=== PATIENT | female | born 1935 | race Caucasian/White ===

== ENCOUNTER 2016-06-05 11:24 | Inpatient (IN) | payer OTHER, MEDICARE ==
--- NOTE | 2016-06-05 12:05 | PDOC ---
History of Present Illness - General History Source: Patient Exam Limitations: No Limitations - History of Present Illness Initial Comments: 06/05/16 12:27 The patient is a 80 year old female, with a significant past medical history of seizures, GERD, and diverticulitis(last episode 2 years ago), who presents to the emergency department complaining of abdominal pain for approximately 2 weeks. Patient reports her symptoms are similar to when shes had diverticulitis in the past. She describes her pain as diffuse with associated gas gurgles. She reports a subjective TMax of 101 F approximately 1.5 weeks ago. She reports a decrease in appetite. Patient reports calling her PCP, Dr. Rodarte, who placed her on a strictly liquid diet to see if the patient would improve. Patient states she was beginning to feel better, but suddenly began to feel abdominal pain again yesterday. She reports taking and using a heating pad with no relief. Patient reports waking up with a subjective fever and constant abdominal cramping this morning. She reports calling her PCP, who sent her to the ED for further evaluation. Patient states she had bloodwork done at Dr. Wetzel office 2 weeks ago, which were normal. Patient denies any associated nausea, vomiting, diarrhea, or constipation. Patient denies any dysuria, hematuria, frequency, or urgency. Patient denies any night sweats or chills. Patient denies any recent travel or sick contacts Allergies: lamotrigine, amoxicillin,bifidobacterium bifidum, ciprofloxacin, ciprofloxacin HCl, iodine, Lactobacillus acidophilus, Lactobacillus bulgaricus, metronidazole, oxcarbazepine, Streptococcus thermophilus, Sulfa (Sulfonamide Antibiotics), and contrast Past Surgical History: TRACEY [employer] Social History: Non-smoker. ETOH use. Denies drug use. PCP: Dr. Rodarte <Pamela Edge - Last Filed: 06/05/16 15:33> <Charlette Jane - Last Filed: 06/05/16 16:20> - General Chief Complaint: Pain Stated Complaint: abd pain, hx of Diverticulosis Time Seen by Provider: 06/05/16 11:42 Past History <Pamela Edge - Last Filed: 06/05/16 15:33> - Past Medical History Anemia: No Asthma: No Cancer: No Cardiac Disorders: No CVA: No COPD: No CHF: No Dementia: No Diabetes: No GI Disorders: Yes (REFLUX, DIVERTICULITIS) Disorders: No HTN: No Hypercholesterolemia: No Liver Disease: No Seizures: Yes (PARTIAL SEIZURES-DX 11/2012) Thyroid Disease: No - Surgical History Abdominal Surgery: No Appendectomy: No Cardiac Surgery: No Cholecystectomy: Yes (LAP CHOLEY-1999) Lung Surgery: No Neurologic Surgery: No Orthopedic Surgery: No - Psycho/Social/Smoking Cessation Hx Anxiety: No Suicidal Ideation: No Smoking Status: No Smoking History: Never smoked Have you smoked in the past 12 months: No Number of Cigarettes Smoked Daily: 0 Information on smoking cessation initiated: No Hx Alcohol Use: Yes (daily obinna, wine) Drug/Substance Use Hx: No Substance Use Type: None Hx Substance Use Treatment: No <Charlette Jane - Last Filed: 06/05/16 16:20> - Past Medical History Allergies/Adverse Reactions: Allergies Allergy/AdvReac Type Severity Reaction Status Date / Time lamotrigine [From Lamictal] Allergy Intermediate HIVES,ITCHI Verified 05/18/14 15:19 NG amoxicillin Allergy Verified 06/05/16 11:38 Bifidobacterium bifidum Allergy Verified 06/05/16 11:38 [From Bacid] ciprofloxacin [From Cipro] Allergy Verified 06/05/16 11:40 ciprofloxacin HCl Allergy Verified 06/05/16 11:40 [From Cipro] iodine Allergy anaphylaxis Verified 05/18/14 15:19 Lactobacillus acidophilus Allergy Verified 06/05/16 11:38 [From Bacid] Lactobacillus bulgaricus Allergy Verified 06/05/16 11:38 [From Bacid] metronidazole [From Flagyl] Allergy Verified 06/05/16 11:39 oxcarbazepine Allergy Verified 06/05/16 11:40 Streptococcus thermophilus Allergy Verified 06/05/16 11:38 [From Bacid] Sulfa (Sulfonamide Allergy Verified 06/05/16 11:40 Antibiotics) contrast Allergy anaphylaxis Uncoded 12/17/13 09:21 Home Medications: Ambulatory Orders Aspirin [ASA -] 81 mg PO DAILY 05/18/14 Atenolol [Tenormin -] 50 mg PO DAILY 06/05/16 Review of Systems - Review of Systems Able to Perform ROS?: Yes Comments:: 06/05/16 12:28 GENERAL/CONSTITUTIONAL: Yes: +fever. No chills. No weakness. HEAD, EYES, EARS, NOSE AND THROAT: No change in vision. No ear pain or discharge. No sore throat. CARDIOVASCULAR: No chest pain or shortness of breath. RESPIRATORY: No cough, wheezing, or hemoptysis. GASTROINTESTINAL: Yes: +Abdominal pain. No nausea, vomiting, diarrhea or constipation. GENITOURINARY: No dysuria, frequency, or change in urination. MUSCULOSKELETAL: No joint or muscle swelling or pain. No neck or back pain. SKIN: No rash NEUROLOGIC: No headache, vertigo, loss of consciousness, or change in strength/ sensation. ENDOCRINE: Yes: +decrease in appetite. No increased thirst. No abnormal weight change. HEMATOLOGIC/LYMPHATIC: No anemia, easy bleeding, or history of blood clots. ALLERGIC/IMMUNOLOGIC: No hives or skin allergy. <Pamela Edge - Last Filed: 06/05/16 15:33> *Physical Exam - Vital Signs Last Vital Signs Temp Pulse Resp BP Pulse Ox 98.4 F 68 18 156/116 98 06/05/16 11:35 06/05/16 11:35 06/05/16 11:35 06/05/16 11:35 06/05/16 11:35 - Physical Exam Comments: 06/05/16 12:28 GENERAL: Awake, alert, and fully oriented, in no acute distress HEAD: No signs of trauma EYES: PERRLA, EOMI, sclera anicteric, conjunctiva clear ENT: Auricles normal inspection, hearing grossly normal, nares patent, oropharynx clear without exudates. Moist mucosa NECK: Normal ROM, supple, no lymphadenopathy, JVD, or masses LUNGS: Breath sounds equal, clear to auscultation bilaterally. No wheezes, and no crackles HEART: Regular rate and rhythm, normal S1 and S2, no murmurs, rubs or gallops ABDOMEN: Bilateral lower quadrant tenderness, with guarding, but no rebound. Normoactive bowel sounds. No masses EXTREMITIES: Normal range of motion, no edema. No clubbing or cyanosis. No cords, erythema, or tenderness NEUROLOGICAL: Cranial nerves II through XII grossly intact. Normal speech, normal gait SKIN: Warm, Dry, normal turgor, no rashes or lesions noted. <Pamela Edge - Last Filed: 06/05/16 15:33> - Vital Signs Last Vital Signs Temp Pulse Resp BP Pulse Ox 98.4 F 68 18 156/116 98 06/05/16 11:35 06/05/16 11:35 06/05/16 11:35 06/05/16 11:35 06/05/16 11:35 <Charlette Jane - Last Filed: 06/05/16 16:20> ED Treatment Course - LABORATORY CBC & Chemistry Diagram: 06/05/16 12:19 06/05/16 12:19 - RADIOLOGY Radiograph Interpretation: 06/05/16 13:40 EXAM: CT Abdomen and Pelvis INTERPRETED BY: Dr. Frazier REVIEWED BY: Dr. Jane IMPRESSION: Findings consistent with a mild degree of proximal sigmoid diverticulitis. Clinical correlation and follow-up recommended. Please see above discussion. <Pamela Edge - Last Filed: 06/05/16 15:33> - LABORATORY CBC & Chemistry Diagram: 06/05/16 12:19 06/05/16 12:19 <Charlette Jane - Last Filed: 06/05/16 16:20> Medical Decision Making - Medical Decision Making 06/05/16 15:23 First call placed to Dr. Rodarte at 15:22. Awaiting call back. Case discussed with Dr. Rodarte at 15:33. <Pamela Edge - Last Filed: 06/05/16 15:33> - Medical Decision Making Pt with acute uncomplicated diverticulitis on CT scan. I obtained ID consult due to history of multiple medication allergies. Dr. Egan evaluated, recommended ertapenem and 24 hour hospital stay. D/w Dr. Rodarte, will admit. <Charlette Jane - Last Filed: 06/05/16 16:20> *DC/Admit/Observation/Transfer - Attestations Scribe Attestion: 06/05/16 12:28 Documentation prepared by Pamela Edge, acting as medical coder for Charlette Jane MD. <Pamela Edge - Last Filed: 06/05/16 15:33> - Discharge Dispostion Admit: Yes <Charlette Jane - Last Filed: 06/05/16 16:20> Diagnosis at time of Disposition: Acute diverticulitis - Discharge Dispostion Condition at time of disposition: Stable - Referrals Referrals: Sophia Rodarte MD [Primary Care Provider] -
[2016-06-05] MEDS ORDERED: SODIUM CHLORIDE 1,000 ML IV STA (12:06)
[2016-06-05 12:29] LABS: BASOPHIL 0.7 % (0-2.0); EOSINOPHIL 0.1 % (0-4.5); MCHC 33.5 g/dl (32.0-36.0); MEAN CELL VOLUME 101.6 fl (80-96); MEAN PLT VOLUME 7.2 fl (7.5-11.1); NEUTROPHILS 71.8 % (42.8-82.8); PLATELET COUNT 250 K/MM3 (134-434); RDW 13.3 % (11.6-15.6)
[2016-06-05 12:45] LABS: URINE APPEARANCE CLEAR; URINE BILIRUBIN NEGATIVE (NEGATIVE); URINE BLOOD 1+ (NEGATIVE); URINE COLOR LTYELLOW; URINE GLUCOSE (UA) NEGATIVE (NEGATIVE); URINE KETONE NEGATIVE (NEGATIVE); URINE LEUK ESTERASE NEGATIVE (NEGATIVE); URINE NITRITE NEGATIVE (NEGATIVE); URINE PROTEIN NEGATIVE (NEGATIVE); URINE UROBILINOGEN NEGATIVE E.U./dl (0.2-1.0)
[2016-06-05 12:46] LABS: URINE MUCUS RARE; URINE RBC 4 /hpf (0-3)
[2016-06-05 13:24] LABS: ALBUMIN 3.4 g/dl (3.4-5.0); ALK PHOS 74 U/L (45-117); ANION GAP 10 (8-16); BILIRUBIN,TOTAL 0.6 mg/dL (0.2-1.0); CALCIUM 8.9 mg/dL (8.5-10.1); CO2 27 mmol/L (21-32); CREATININE 0.8 mg/dL (0.55-1.02); GLUCOSE,RANDOM 95 mg/dL (74-106); SGPT/ALT 16 U/L (12-78); TOT PROT 6.6 g/dl (6.4-8.2)
[2016-06-05 13:25] LABS: SGOT/AST 26 U/L (15-37)
--- NOTE | 2016-06-05 14:59 | PN ---
Progress Note (short form) - Note Progress Note: ID Consult dictated Recurrent acute sigmoid diverticulitis Multiple antibiotic allergies Obtain cultures Empiric ertapenem Aware of PCN allergy
[2016-06-05] MEDS ORDERED: ACETAMINOPHEN 325 MG TABLET (FP) PO ONE (15:23)
[2016-06-05] MEDS ORDERED: ERTAPENEM SODIUM 1 GM VIAL ONE (15:24)
[2016-06-05] MEDS ORDERED: ACETAMINOPHEN 325 MG TABLET (FP) ONE (15:24)
[2016-06-05] MEDS: ERTAPENEM SODIUM 1 GM in SODIUM CHLORIDE 50 ML IVPB SCH (16:55)
[2016-06-05 18:12] VITALS: BMI 28.8
--- NOTE | 2016-06-05 18:38 | CONS ---
DATE OF CONSULTATION: DATE OF DICTATION: 06/05/2016 INFECTIOUS DISEASE CONSULTATION HISTORY OF PRESENT ILLNESS: The patient is a 80-year-old female with a history of multiple antibiotic allergies evaluated for recurrent acute sigmoid diverticulitis. The patient developed a several-day history of diffuse abdominal pain described as gas like associated with anorexia and low-grade fever. She had had similar episodes in the past. She had been hospitalized at [facility] in May 2014 with acute sigmoid diverticulitis. The patient medicated herself with and applied heating pad with some relief. The pain worsened, and she presented to emergency room where CAT scan of abdomen and pelvis shows proximal acute sigmoid diverticulitis. Patient has history of multiple antibiotic allergies. She denies any nausea or vomiting. No rectal bleeding. No diarrhea or constipation. PAST MEDICAL HISTORY: Positive for acute diverticulitis. She was hospitalized in May of 2014; prior to that, she had an episode 4 years prior to that. Past medical history also includes gastroesophageal reflux disease. PAST SURGICAL HISTORY: Status post laparoscopic cholecystectomy. ALLERGIES: SULFA (rash). AMOXICILLIN (rash). CIPROFLOXACIN and FLAGYL (facial rash). MEDICATION: Include aspirin and atenolol. SOCIAL HISTORY: She lives at home with family members. Nonsmoker. Daily alcohol use. SYSTEMS REVIEW: Neurologic: No loss of consciousness, or focal weakness. Positive history of seizure disorder. Cardiac: Negative chest pain or palpitations. Respiratory: Negative cough or sputum production. Gastrointestinal: As per HPI. Genitourinary: Negative for urinary tract infection. LABORATORY DATA: White count 10.0, hematocrit 43.5, platelet count 250, BUN 7, creatinine 0.8. Urinalysis negative. Culture is pending. On CAT scan of the abdomen and pelvis shows inflammation of the proximal sigmoid colon. No abscess was noted. PHYSICAL EXAMINATION: General: She is awake. She is in no acute distress. Vital signs: Temperature 96.4, blood pressure 156/116, pulse 68, respirations 18 per minute. HEENT: Sclerae anicteric. Oropharynx negative. Cardiovascular: Heart sounds S1, S2. Respiratory: Lungs clear. Abdomen: Hypoactive bowel sounds. There is tenderness present left lower quadrant to deep palpation. No mass, rebound, or rigidity. Extremities: Negative for edema. IMPRESSION: 1. Recurrent acute sigmoid diverticulitis. 2. Multiple antibiotic allergies. Obtain blood cultures. Empiric antibiotic coverage in this PENICILLIN allergic patient with ertapenem 1 g IV piggyback daily. GI evaluation. Analgesics. IV fluid hydration. Will follow. Thank you for the kind referral. RYLAND SEN M.D. [id number]
[2016-06-05] MEDS ORDERED: diphenhydrAMINE HCL 25 MG CAPSULE (FP) PO STA (19:37)
[2016-06-05] MEDS ORDERED: ACETAMINOPHEN 325 MG TABLET (FP) PO PRN (19:39)
--- NOTE | 2016-06-05 21:20 | HP ---
Admitting History and Physical - Admission Chief Complaint: abdominal pain and fever History of Present Illness: 80 yo female with PMH of Seizure Disorder HTN, and Diverticulitis, developed for approximately 2 weeks nonspecific abdominal pain. During the past 2 days the patient developed fever with a maximum of 100.5. She was referred by me to ER for further evaluation. 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 Cardiovascular: Yes: HTN Gastrointestinal: Yes: Diverticulitis, Diverticulosis ...: No Heme/Onc: Yes: B12 Deficiency - Smoking History Smoking history: Never smoked Have you smoked in the past 12 months: No Aproximately how many cigarettes per day: 0 - Alcohol/Substance Use Hx Alcohol Use: Yes (daily obinna, wine) Home Medications - Allergies Allergies/Adverse Reactions: Allergies Allergy/AdvReac Type Severity Reaction Status Date / Time lamotrigine [From Lamictal] Allergy Intermediate HIVES,ITCHI Verified 05/18/14 15:19 NG amoxicillin Allergy Verified 06/05/16 11:38 Bifidobacterium bifidum Allergy Verified 06/05/16 11:38 [From Bacid] ciprofloxacin [From Cipro] Allergy Verified 06/05/16 11:40 ciprofloxacin HCl Allergy Verified 06/05/16 11:40 [From Cipro] iodine Allergy anaphylaxis Verified 05/18/14 15:19 Lactobacillus acidophilus Allergy Verified 06/05/16 11:38 [From Bacid] Lactobacillus bulgaricus Allergy Verified 06/05/16 11:38 [From Bacid] metronidazole [From Flagyl] Allergy Verified 06/05/16 11:39 oxcarbazepine Allergy Verified 06/05/16 11:40 Streptococcus thermophilus Allergy Verified 06/05/16 11:38 [From Bacid] Sulfa (Sulfonamide Allergy Verified 06/05/16 11:40 Antibiotics) contrast Allergy anaphylaxis Uncoded 12/17/13 09:21 - Home Medications Home Medications: Ambulatory Orders Aspirin [ASA -] 81 mg PO DAILY 05/18/14 Atenolol [Tenormin -] 25 mg PO DAILY 06/05/16 Review of Systems - Review of Systems Constitutional: reports: Malaise Neck: reports: No Symptoms Cardiovascular: reports: No Symptoms Respiratory: reports: No Symptoms Gastrointestinal: reports: Abdominal Pain, Constipation Genitourinary: reports: No Symptoms Breasts: reports: No Symptoms Reported Musculoskeletal: reports: No Symptoms Integumentary: reports: Pruritis, Rash (on lower anterior abdominnal wall) Physical Examination Vital Signs: Vital Signs Temperature 99.1 F 06/05/16 18:00 Pulse Rate 64 06/05/16 18:00 Respiratory Rate 20 06/05/16 18:00 Blood Pressure 147/70 06/05/16 18:00 O2 Sat by Pulse Oximetry (%) 99 06/05/16 16:53 Constitutional: Yes: No Distress, Calm Eyes: Yes: Conjunctiva Clear, EOM Intact HENT: Yes: Atraumatic, Normocephalic Neck: Yes: Supple, Trachea Midline Cardiovascular: Yes: Regular Rate and Rhythm, S1, S2 Respiratory: Yes: Regular, CTA Bilaterally. No: SOB Gastrointestinal: Yes: Normal Bowel Sounds, Soft, Abdomen, Obese, Tenderness ( in the suprapubic area and left descending colon). No: Hepatomegaly ...Rectal Exam: Yes: Deferred Breast(s): Yes: WNL Musculoskeletal: Yes: WNL Extremities: No: Calf Tenderness, Erythema Edema: No Peripheral Pulses WNL: Yes Neurological: Yes: Alert, Oriented Psychiatric: Yes: Alert, Oriented Imaging - Results Cat Scan: Other (Ct scan of the abdomen showing mild sigmoid diverticulitis. without fluid collection or free air) Problem List - Problems (1) Acute diverticulitis Assessment/Plan: with multiple allergies to various antibiotics was started in ER on Invanz and received the first dose there monitor patient tylenol for pain liquid diet Iv fluids D51/2 NS at 42 cc/ hr Gastroeneterology follow up in am Code(s): K57.92 - DVTRCLI OF INTEST, PART UNSP, W/O PERF OR ABSCESS W/O BLEED (2) History of seizure Assessment/Plan: the patient is not taking any medications , due to her allergies to the drugs recommended until now Code(s): Z87.898 - PERSONAL HISTORY OF OTHER SPECIFIED CONDITIONS (3) HTN (hypertension) Assessment/Plan: continue Atenolol 25 mg po daily Code(s): I10 - ESSENTIAL (PRIMARY) HYPERTENSION
[2016-06-05] MEDS: D5-1/2NS+10 MEQ KCL - 1,000 ML IV SCH (21:33)
[2016-06-05] MEDS: ATENOLOL 25 MG TABLET (FP) PO SCH (21:33)
[2016-06-05] MEDS ORDERED: ATENOLOL 25 MG TABLET (FP) PO SCH (22:00)
[2016-06-05] MEDS ORDERED: PT OWN MED DRAWER 7, Y5N ONE ×2 (22:10→22:21)
[2016-06-06 07:59] LABS: BASOPHIL 0.4 % (0-2.0); EOSINOPHIL 0.3 % (0-4.5); MCH 35.1 pg (25.7-33.7); MCHC 34.1 g/dl (32.0-36.0); MEAN CELL VOLUME 102.9 fl (80-96); MEAN PLT VOLUME 7.6 fl (7.5-11.1); NEUTROPHILS 66.6 % (42.8-82.8); PLATELET COUNT 217 K/MM3 (134-434); RDW 13.1 % (11.6-15.6); WHITE BLOOD COUNT 9.6 K/mm3 (4.0-10.0)
[2016-06-06 08:18] LABS: ALBUMIN 3.2 g/dl (3.4-5.0); ANION GAP 9 (8-16); BILIRUBIN,TOTAL 0.8 mg/dL (0.2-1.0); CALCIUM 8.1 mg/dL (8.5-10.1); CO2 24 mmol/L (21-32); COCKROFT - GAULT 90.1935; CREATININE 0.6 mg/dL (0.55-1.02); GLUCOSE,RANDOM 96 mg/dL (74-106); SGOT/AST 11 U/L (15-37); SGPT/ALT 13 U/L (12-78)
[2016-06-06 08:19] LABS: ALK PHOS 73 U/L (45-117); TOT PROT 5.8 g/dl (6.4-8.2)
[2016-06-06] MEDS: ACETAMINOPHEN 325 MG TABLET (FP) PO PRN ×2 (09:28→14:27)
[2016-06-06] MEDS: diphenhydrAMINE HCL 25 MG CAPSULE (FP) PO PRN (09:29)
--- NOTE | 2016-06-06 10:23 | CON.GI ---
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 Cardio/Vascular: Yes: HTN Gastrointestinal: Yes: Diverticulitis, Diverticulosis ...: No - Alcohol/Substance Use Hx Alcohol Use: Yes (daily obinna, wine) - Smoking History Smoking history: Never smoked Have you smoked in the past 12 months: No Aproximately how many cigarettes per day: 0 Home Medications - Allergies Allergies/Adverse Reactions: Allergies Allergy/AdvReac Type Severity Reaction Status Date / Time lamotrigine [From Lamictal] Allergy Intermediate HIVES,ITCHI Verified 05/18/14 15:19 NG amoxicillin Allergy Verified 06/05/16 11:38 Bifidobacterium bifidum Allergy Verified 06/05/16 11:38 [From Bacid] ciprofloxacin [From Cipro] Allergy Verified 06/05/16 11:40 ciprofloxacin HCl Allergy Verified 06/05/16 11:40 [From Cipro] iodine Allergy anaphylaxis Verified 05/18/14 15:19 Lactobacillus acidophilus Allergy Verified 06/05/16 11:38 [From Bacid] Lactobacillus bulgaricus Allergy Verified 06/05/16 11:38 [From Bacid] metronidazole [From Flagyl] Allergy Verified 06/05/16 11:39 oxcarbazepine Allergy Verified 06/05/16 11:40 Streptococcus thermophilus Allergy Verified 06/05/16 11:38 [From Bacid] Sulfa (Sulfonamide Allergy Verified 06/05/16 11:40 Antibiotics) contrast Allergy anaphylaxis Uncoded 12/17/13 09:21 - Home Medications Home Medications: Ambulatory Orders Aspirin [ASA -] 81 mg PO DAILY 05/18/14 Atenolol [Tenormin -] 25 mg PO DAILY 06/05/16 Physical Exam-GI Vital Signs: Vital Signs Temperature 98.8 F 06/06/16 06:09 Pulse Rate 72 06/06/16 06:09 Respiratory Rate 20 06/06/16 06:09 Blood Pressure 144/78 06/06/16 06:09 O2 Sat by Pulse Oximetry (%) 96 06/05/16 22:00 Labs: CBC, BMP 06/06/16 06:15 06/06/16 06:15
--- NOTE | 2016-06-06 10:32 | CON.GI ---
Consult Consult Specialty:: GI Referred by:: Dr. Rodarte Reason for Consultation:: Diverticulitis - History of Present Illness Chief Complaint: I was having abdominal pain History of Present Illness: 80F admitted for evaluation of 2 weeks of abdominal bloating, diminished appetite and cramping. She also had a temp 100.8 at home about 2 weeks ago. She put herself on a liquid diet for a bit however the cramping turned to lower abdominal pain. She was sent to the [facility] ER. WBC was 10,[address] scan without contrast was performed revealing mild proximal sigmoid diverticulitis. She had an episode of diverticultitis in 2014 for which she was treated at [facility]. Dr. Deon Wells is her manager chinese. He performed 2-3 colonoscopies on Ms. Bowen, the last being about 8 years ago. She does describe polyps being found on the first colonoscopy. She is currently on ertapenem given her multiple antibiotic allergies. 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 - Past Surgical History Past Surgical History: Yes: Cholecystectomy (laparoscopic) Additional Surgical History: vaginal gland removal - Alcohol/Substance Use Hx Alcohol Use: Yes (daily obinna, wine) Number of Drinks Daily: 4 (nightly martini, wine with every meal) - Smoking History Smoking history: Never smoked Have you smoked in the past 12 months: No Aproximately how many cigarettes per day: 0 - Social History Usual Living Arrangement: Alone ADL: Independent 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 Place of : [facility] History of Recent Travel: No Home Medications - Allergies Allergies/Adverse Reactions: Allergies Allergy/AdvReac Type Severity Reaction Status Date / Time lamotrigine [From Lamictal] Allergy Intermediate HIVES,ITCHI Verified 05/18/14 15:19 NG amoxicillin Allergy Verified 06/05/16 11:38 Bifidobacterium bifidum Allergy Verified 06/05/16 11:38 [From Bacid] ciprofloxacin [From Cipro] Allergy Verified 06/05/16 11:40 ciprofloxacin HCl Allergy Verified 06/05/16 11:40 [From Cipro] iodine Allergy anaphylaxis Verified 05/18/14 15:19 Lactobacillus acidophilus Allergy Verified 06/05/16 11:38 [From Bacid] Lactobacillus bulgaricus Allergy Verified 06/05/16 11:38 [From Bacid] metronidazole [From Flagyl] Allergy Verified 06/05/16 11:39 oxcarbazepine Allergy Verified 06/05/16 11:40 Streptococcus thermophilus Allergy Verified 06/05/16 11:38 [From Bacid] Sulfa (Sulfonamide Allergy Verified 06/05/16 11:40 Antibiotics) contrast Allergy anaphylaxis Uncoded 12/17/13 09:21 - Home Medications Home Medications: Ambulatory Orders Aspirin [ASA -] 81 mg PO DAILY 05/18/14 Atenolol [Tenormin -] 25 mg PO DAILY 06/05/16 Family Disease History - Family Disease History Family Disease History: Other: Father ( 56 bladder ca), Mother ( 76 ALS) , Brother (1 brother: does not speak to him much), Daughter (1 daughter: healthy ) Other Family History: No family history of colorectal cancer or other GI malignancy Review of Systems - Review of Systems Cardiovascular: denies: Chest Pain Respiratory: denies: Cough Gastrointestinal: reports: Abdominal Pain, Bloating, Constipation. denies: Diarrhea, Melena, Rectal Bleeding, Vomiting Physical Exam-GI Vital Signs: Vital Signs Temperature 98.8 F 06/06/16 06:09 Pulse Rate 72 06/06/16 06:09 Respiratory Rate 20 06/06/16 06:09 Blood Pressure 144/78 06/06/16 06:09 O2 Sat by Pulse Oximetry (%) 96 06/05/16 22:00 Constitutional: Yes: Calm Eyes: No: Sclera Icterus Cardiovascular: Yes: Regular Rate and Rhythm. No: Murmur Respiratory: Yes: CTA Bilaterally Gastrointestinal Inspection: Yes: Scars (healed trochar scars). No: Distention ...Auscultate: Yes: Normoactive Bowel Sounds ...Palpate: Yes: Tenderness (TTP LLQ). No: Guarding, Tenderness, Rebound ...Percussion: No: Tympanitic ...Rectal Exam: Yes: Guaiac Negative (Light brown stool). No: Mass Edema: No Neurological: Yes: Alert, Oriented Labs: CBC, BMP 06/06/16 06:15 06/06/16 06:15 Imaging - Results Cat Scan: Report Reviewed, Image Reviewed Problem List - Problems (1) Acute diverticulitis Assessment/Plan: Acute recurrent uncomplicated diverticulitis: On IV Abx per ID given her multiple drug allergies Daily labs w/ CRP OK with clear liquids. If pain not improving, strict NPO except meds Advised that she should consider colonoscopy in 6-8 weeks when acute issues are resolved. She intends to follow-up with her manager chinese Dr. Deon Wells. Code(s): K57.92 - DVTRCLI OF INTEST, PART UNSP, W/O PERF OR ABSCESS W/O BLEED
[2016-06-06] MEDS: ERTAPENEM SODIUM 1 GM in SODIUM CHLORIDE 50 ML IVPB SCH (10:37)
--- NOTE | 2016-06-06 11:17 | PN ---
Progress Note, Physician History of Present Illness: C/O LLQ abdominal pain No N/V No BM Afebrile Tolerated ertapenem without adverse reaction - Current Medication List Current Medications: Active Medications Acetaminophen (Tylenol -) 325 mg PO Q4H PRN PRN Reason: FEVER OR PAIN Last Admin: 06/06/16 09:28 Dose: 325 mg Atenolol (Tenormin -) 25 mg PO HS OLEKSANDR Last Admin: 06/05/16 21:33 Dose: 25 mg Diphenhydramine HCl (Benadryl -) 25 mg PO Q6H PRN PRN Reason: FOR ITCHING Last Admin: 06/06/16 09:29 Dose: 25 mg Ertapenem 1 gm/ Sodium (Chloride) 50 mls @ 100 mls/hr IVPB DAILY OLEKSANDR PRN Reason: Protocol Last Admin: 06/06/16 10:37 Dose: 100 mls/hr Potassium Chloride/Dextrose/Sod Cl (D5-1/2ns+10 Meq Kcl -) 1,000 mls @ 42 mls/ hr IV ASDIR OLEKSANDR Last Admin: 06/05/16 21:33 Dose: 42 mls/hr - Objective Vital Signs: Vital Signs Temperature 98.8 F 06/06/16 06:09 Pulse Rate 72 06/06/16 06:09 Respiratory Rate 20 06/06/16 06:09 Blood Pressure 144/78 06/06/16 06:09 O2 Sat by Pulse Oximetry (%) 96 06/05/16 22:00 Constitutional: Yes: No Distress Eyes: Yes: Conjunctiva Clear Cardiovascular: Yes: Regular Rate and Rhythm, S1, S2 Respiratory: Yes: CTA Bilaterally Gastrointestinal: Yes: Normal Bowel Sounds, Soft, Tenderness, Other (+ LLQ tenderness to deep palpation no rebound/ rigidity) Edema: No Labs: CBC, BMP 06/06/16 06:15 06/06/16 06:15 Assessment/Plan Acute recurrent sigmoid diverticulitis Multiple antibiotic allergies Continue ertapenem Await cultures GI evaluation appreciated
[2016-06-06] MEDS ORDERED: clonazePAM 0.5 MG TABLET PO SCH (17:45)
--- NOTE | 2016-06-06 17:54 | PN ---
Progress Note, Physician Chief Complaint: CC: less abdominal pain , now having seizures for which she usually takes Klonopin prn. there is no fever, and the patient did not have a bowel movement - Current Medication List Current Medications: Active Medications Acetaminophen (Tylenol -) 325 mg PO Q4H PRN PRN Reason: FEVER OR PAIN Last Admin: 06/06/16 14:27 Dose: 325 mg Atenolol (Tenormin -) 25 mg PO HS OLEKSANDR Last Admin: 06/05/16 21:33 Dose: 25 mg Clonazepam (Klonopin -) 0.125 mg PO ONCE OLEKSANDR Stop: 06/07/16 17:44 Diphenhydramine HCl (Benadryl -) 25 mg PO Q6H PRN PRN Reason: FOR ITCHING Last Admin: 06/06/16 09:29 Dose: 25 mg Ertapenem 1 gm/ Sodium (Chloride) 50 mls @ 100 mls/hr IVPB DAILY OLEKSANDR PRN Reason: Protocol Last Admin: 06/06/16 10:37 Dose: 100 mls/hr Potassium Chloride/Dextrose/Sod Cl (D5-1/2ns+10 Meq Kcl -) 1,000 mls @ 42 mls/ hr IV ASDIR OLEKSANDR Last Admin: 06/05/16 21:33 Dose: 42 mls/hr - Objective Vital Signs: Vital Signs Temperature 98.2 F 06/06/16 15:11 Pulse Rate 67 06/06/16 15:11 Respiratory Rate 16 06/06/16 15:11 Blood Pressure 115/72 06/06/16 15:11 O2 Sat by Pulse Oximetry (%) 99 06/06/16 11:00 Constitutional: Yes: No Distress, Calm Eyes: Yes: Conjunctiva Clear, EOM Intact HENT: Yes: Atraumatic, Normocephalic Neck: Yes: Supple, Trachea Midline Cardiovascular: Yes: Regular Rate and Rhythm Respiratory: Yes: Regular, CTA Bilaterally Gastrointestinal: Yes: Normal Bowel Sounds, Soft, Abdomen, Obese, Other ( decreased tenderness in th esuprapubic area) ...Rectal Exam: Yes: Deferred Breast(s): Yes: WNL Musculoskeletal: Yes: WNL Extremities: Yes: WNL. No: Calf Tenderness Peripheral Pulses WNL: Yes Neurological: Yes: Alert, Oriented Labs: CBC, BMP 06/06/16 06:15 06/06/16 06:15 Problem List - Problems (1) Acute diverticulitis Assessment/Plan: with multiple allergies to various antibiotics continue Invanz, sine the patient is tolerating it monitor patient tylenol for pain liquid diet Iv fluids D51/2 NS at 42 cc/ hr Code(s): K57.92 - DVTRCLI OF INTEST, PART UNSP, W/O PERF OR ABSCESS W/O BLEED (2) History of seizure Assessment/Plan: the patient is not taking any medications , due to her allergies to the drugs recommended until now start Klonopin as needed Code(s): Z87.898 - PERSONAL HISTORY OF OTHER SPECIFIED CONDITIONS (3) HTN (hypertension) Assessment/Plan: continue Atenolol 25 mg po daily Code(s): I10 - ESSENTIAL (PRIMARY) HYPERTENSION
[2016-06-06] MEDS: D5-1/2NS+10 MEQ KCL - 1,000 ML IV SCH (20:25)
[2016-06-06] MEDS: ATENOLOL 25 MG TABLET (FP) PO SCH (22:00)
[2016-06-06] MEDS ORDERED: PT OWN MED DRAWER 7, Y5N ONE (22:37)
[2016-06-07] MEDS ORDERED: PT OWN MED DRAWER 7, Y5N ONE ×3 (00:56→21:25)
[2016-06-07 08:18] LABS: BASOPHIL 0.4 % (0-2.0); EOSINOPHIL 0.8 % (0-4.5); MCH 34.6 pg (25.7-33.7); MCHC 33.6 g/dl (32.0-36.0); MEAN CELL VOLUME 103.1 fl (80-96); MEAN PLT VOLUME 7.7 fl (7.5-11.1); NEUTROPHILS 64.9 % (42.8-82.8); PLATELET COUNT 209 K/MM3 (134-434); RDW 13.3 % (11.6-15.6); WHITE BLOOD COUNT 7.9 K/mm3 (4.0-10.0)
--- NOTE | 2016-06-07 08:20 | EKG ---
Test Reason : Blood Pressure : / mmHG Vent. Rate : 064 BPM Atrial Rate : 064 BPM P-R Int : 154 ms QRS Dur : 098 ms QT Int : 416 ms P-R-T Axes : 053 -54 030 degrees QTc Int : 429 ms NORMAL SINUS RHYTHM WITH SINUS ARRHYTHMIA POSSIBLE LEFT ATRIAL ENLARGEMENT INCOMPLETE RIGHT BUNDLE BRANCH BLOCK LEFT ANTERIOR FASCICULAR BLOCK NONSPECIFIC ST ABNORMALITY ABNORMAL ECG WHEN COMPARED WITH ECG OF 13-MAR-2016 10:39, T WAVE VARIATION Confirmed by FADI JONAS MD ([id number]) on 06/07/2016 8:20:22 AM Referred By: Confirmed By:FADI JONAS MD
[2016-06-07 08:45] LABS: ALK PHOS 73 U/L (45-117); ANION GAP 11 (8-16); BILIRUBIN,TOTAL 0.6 mg/dL (0.2-1.0); C-REACTIVE PROTEIN 4.6 MG/DL (0.00-0.3); CALCIUM 8.4 mg/dL (8.5-10.1); CO2 24 mmol/L (21-32); COCKROFT - GAULT 108.2305; CREATININE 0.5 mg/dL (0.55-1.02); GLUCOSE,RANDOM 88 mg/dL (74-106); SGOT/AST 13 U/L (15-37); SGPT/ALT 15 U/L (12-78); TOT PROT 5.8 g/dl (6.4-8.2)
[2016-06-07] MEDS: ACETAMINOPHEN 325 MG TABLET (FP) PO PRN (09:50)
[2016-06-07] MEDS: diphenhydrAMINE HCL 25 MG CAPSULE (FP) PO PRN ×2 (09:50→21:22)
[2016-06-07] MEDS: ERTAPENEM SODIUM 1 GM in SODIUM CHLORIDE 50 ML IVPB SCH (10:50)
--- NOTE | 2016-06-07 11:06 | PN ---
Progress Note, Physician History of Present Illness: C/O bilateral lower quadrant abdominal pain No c/o N/V No BM since before admission No fever/ chills Tolerating ertapenem Afebrile WBC WNL BC no growth - Current Medication List Current Medications: Active Medications Acetaminophen (Tylenol -) 325 mg PO Q4H PRN PRN Reason: FEVER OR PAIN Last Admin: 06/07/16 09:50 Dose: 325 mg Atenolol (Tenormin -) 25 mg PO HS OLEKSANDR Last Admin: 06/06/16 22:00 Dose: 25 mg Clonazepam (Klonopin -) 0.125 mg PO BID OLEKSANDR Diphenhydramine HCl (Benadryl -) 25 mg PO Q6H PRN PRN Reason: FOR ITCHING Last Admin: 06/07/16 09:50 Dose: 25 mg Ertapenem 1 gm/ Sodium (Chloride) 50 mls @ 100 mls/hr IVPB DAILY OLEKSANDR PRN Reason: Protocol Last Admin: 06/06/16 10:37 Dose: 100 mls/hr Potassium Chloride/Dextrose/Sod Cl (D5-1/2ns+10 Meq Kcl -) 1,000 mls @ 42 mls/ hr IV ASDIR OLEKSANDR Last Admin: 06/06/16 20:25 Dose: 42 mls/hr - Objective Vital Signs: Vital Signs Temperature 97.7 F 06/07/16 06:00 Pulse Rate 57 L 06/07/16 06:00 Respiratory Rate 20 06/07/16 06:00 Blood Pressure 131/65 06/07/16 06:00 O2 Sat by Pulse Oximetry (%) 99 06/06/16 22:00 Constitutional: Yes: No Distress Eyes: Yes: Conjunctiva Clear Cardiovascular: Yes: Regular Rate and Rhythm, S1, S2 Respiratory: Yes: CTA Bilaterally Gastrointestinal: Yes: Normal Bowel Sounds, Soft, Abdomen, Obese, Tenderness, Other (Bilteral lower quadrant tenderness to deep palpation) Labs: CBC, BMP 06/07/16 06:15 06/07/16 06:15 Assessment/Plan Acute recurrent sigmoid diverticulitis Multiple antibiotic allergies Continue ertapenem GI evaluation follow up
[2016-06-07] MEDS: clonazePAM 0.5 MG TABLET PO SCH ×2 (11:34→21:23)
--- NOTE | 2016-06-07 12:58 | PN ---
Progress Note, Physician Chief Complaint: CC: less abdominal pain , now having seizures for which she usually takes Klonopin prn. There is no fever, and the patient did not have a bowel movement.She was able to tolerate liquid diet - Current Medication List Current Medications: Active Medications Acetaminophen (Tylenol -) 325 mg PO Q4H PRN PRN Reason: FEVER OR PAIN Last Admin: 06/07/16 09:50 Dose: 325 mg Atenolol (Tenormin -) 25 mg PO HS OLEKSANDR Last Admin: 06/06/16 22:00 Dose: 25 mg Clonazepam (Klonopin -) 0.125 mg PO BID OLEKSANDR Last Admin: 06/07/16 11:34 Dose: 0.125 mg Diphenhydramine HCl (Benadryl -) 25 mg PO Q6H PRN PRN Reason: FOR ITCHING Last Admin: 06/07/16 09:50 Dose: 25 mg Ertapenem 1 gm/ Sodium (Chloride) 50 mls @ 100 mls/hr IVPB DAILY OLEKSANDR PRN Reason: Protocol Last Admin: 06/07/16 10:50 Dose: 100 mls/hr Potassium Chloride/Dextrose/Sod Cl (D5-1/2ns+10 Meq Kcl -) 1,000 mls @ 42 mls/ hr IV ASDIR OLEKSANDR Last Admin: 06/06/16 20:25 Dose: 42 mls/hr - Objective Vital Signs: Vital Signs Temperature 97.7 F 06/07/16 06:00 Pulse Rate 57 L 06/07/16 06:00 Respiratory Rate 20 06/07/16 06:00 Blood Pressure 131/65 06/07/16 06:00 O2 Sat by Pulse Oximetry (%) 99 06/06/16 22:00 Constitutional: Yes: No Distress, Calm Eyes: Yes: Conjunctiva Clear, EOM Intact HENT: Yes: Atraumatic, Normocephalic Neck: Yes: Supple, Trachea Midline Cardiovascular: Yes: Regular Rate and Rhythm, S1, S2 Gastrointestinal: Yes: Normal Bowel Sounds, Soft ...Rectal Exam: Yes: Deferred Breast(s): Yes: WNL Musculoskeletal: Yes: WNL Extremities: No: Calf Tenderness Edema: No Peripheral Pulses WNL: Yes Neurological: Yes: Alert, Oriented Psychiatric: Yes: Alert, Oriented Labs: CBC, BMP 06/07/16 06:15 06/07/16 06:15 Problem List - Problems (1) Acute diverticulitis Assessment/Plan: with multiple allergies to various antibiotics continue Invanz, since the patient is tolerating it monitor patient tylenol for pain liquid diet Iv fluids D51/2 NS at 42 cc/ hr Code(s): K57.92 - DVTRCLI OF INTEST, PART UNSP, W/O PERF OR ABSCESS W/O BLEED (2) History of seizure Assessment/Plan: the patient is not taking any medications , due to her allergies to the drugs recommended until now the patient had an absence seizures today increases Klonopin to 0.125 mg po bid Code(s): Z87.898 - PERSONAL HISTORY OF OTHER SPECIFIED CONDITIONS (3) HTN (hypertension) Assessment/Plan: continue Atenolol 25 mg po daily Code(s): I10 - ESSENTIAL (PRIMARY) HYPERTENSION
[2016-06-07] MEDS: POTASSIUM CHLORIDE TABS 10 MEQ TABLET.ER (FP) PO SCH (13:18)
--- NOTE | 2016-06-07 16:49 | PN ---
GI Progress Note Subjective: No acute events LLQ abdominal pain persists, somwwhat improved No BM as of yet - Objective Vital Signs: Vital Signs Temperature 98.1 F 06/07/16 14:17 Pulse Rate 69 06/07/16 14:17 Respiratory Rate 16 06/07/16 14:17 Blood Pressure 127/58 06/07/16 14:17 O2 Sat by Pulse Oximetry (%) 100 06/07/16 11:00 Constitutional: Calm Eyes: No: Sclera Icterus Cardiovascular: Yes: Regular Rate and Rhythm Gastrointestinal Inspection: No: Distention ...Auscultate: Yes: Normoactive Bowel Sounds ...Palpate: Yes: Tenderness (TTP LLQ, no guarding/rebound) ...Percussion: No: Tympanitic Edema: No Neurological: Yes: Alert, Oriented Labs: CBC, BMP 06/07/16 06:15 06/07/16 06:15 Laboratory Tests 06/07/16 06:15 C-Reactive Protein 4.6 H Problem List - Problems (1) Acute diverticulitis Assessment/Plan: Some clinical improvement Continuing Abx per ID. Regimen selection has been limited given her multiple drug allergies Clear liquids for now AM labs Code(s): K57.92 - DVTRCLI OF INTEST, PART UNSP, W/O PERF OR ABSCESS W/O BLEED
[2016-06-07] MEDS: D5-1/2NS+10 MEQ KCL - 1,000 ML IV SCH (20:23)
[2016-06-07] MEDS: ATENOLOL 25 MG TABLET (FP) PO SCH (21:23)
[2016-06-08 07:57] LABS: BASOPHIL 0.7 % (0-2.0); MCHC 33.9 g/dl (32.0-36.0); MEAN CELL VOLUME 103.5 fl (80-96); NEUTROPHILS 51.3 % (42.8-82.8); PLATELET COUNT 203 K/MM3 (134-434); RDW 13.2 % (11.6-15.6); WHITE BLOOD COUNT 6.3 K/mm3 (4.0-10.0)
[2016-06-08 08:34] LABS: C-REACTIVE PROTEIN 1.3 MG/DL (0.00-0.3); CALCIUM 8.4 mg/dL (8.5-10.1); COCKROFT - GAULT 108.2305; CREATININE 0.5 mg/dL (0.55-1.02)
[2016-06-08] MEDS ORDERED: PT OWN MED DRAWER 7, Y5N ONE (09:14)
[2016-06-08] MEDS: POTASSIUM CHLORIDE TABS 10 MEQ TABLET.ER (FP) PO SCH (09:21)
[2016-06-08] MEDS: clonazePAM 0.5 MG TABLET PO SCH ×2 (09:21→22:06)
[2016-06-08] MEDS: diphenhydrAMINE HCL 25 MG CAPSULE (FP) PO PRN (09:22)
[2016-06-08] MEDS: ERTAPENEM SODIUM 1 GM in SODIUM CHLORIDE 50 ML IVPB SCH (10:19)
[2016-06-08] MEDS ORDERED: PICC LINE 8 ML FLUSH PROTOCOL IVPUSH PRN (15:09)
--- NOTE | 2016-06-08 15:33 | PN ---
Progress Note, Physician Chief Complaint: CC: no abdominal pain , now having seizures for which she usually takes Klonopin prn. There is no fever, and the patient did not have a bowel movement.She was able to tolerate liquid diet History of Present Illness: 80 yo female with multiple medications allergies, was admitted for mild diverticulitis. The patient was started on Invanz but she feels that her seizures have increased in frequency since on antibiotic. She is allergic to multiple medications including most of antiepilleptics, and for this reason she is taking PRN Klonopin whenever her seizures start manifesting. - Current Medication List Current Medications: Active Medications Acetaminophen (Tylenol -) 325 mg PO Q4H PRN PRN Reason: FEVER OR PAIN Last Admin: 06/07/16 09:50 Dose: 325 mg Atenolol (Tenormin -) 25 mg PO HS [facility] Last Admin: 06/07/16 21:23 Dose: 25 mg Clonazepam (Klonopin -) 0.125 mg PO BID OLEKSANDR Last Admin: 06/08/16 09:21 Dose: 0.125 mg Diphenhydramine HCl (Benadryl -) 25 mg PO Q6H PRN PRN Reason: FOR ITCHING Last Admin: 06/08/16 09:22 Dose: 25 mg IV Flush (Picc Line Flush) 8 ml IVPUSH PRN PRN PRN Reason: Protocol Ertapenem 1 gm/ Sodium (Chloride) 50 mls @ 100 mls/hr IVPB DAILY OLEKSANDR PRN Reason: Protocol Last Admin: 06/08/16 10:19 Dose: 100 mls/hr Potassium Chloride/Dextrose/Sod Cl (D5-1/2ns+10 Meq Kcl -) 1,000 mls @ 42 mls/ hr IV ASDIR OLEKSANDR Last Admin: 06/07/16 20:23 Dose: Not Given Potassium Chloride (K-Dur -) 10 meq PO DAILY OLEKSANDR Last Admin: 06/08/16 09:21 Dose: 10 meq - Objective Vital Signs: Vital Signs Temperature 99.1 F 06/08/16 14:37 Pulse Rate 59 L 06/08/16 14:37 Respiratory Rate 18 06/08/16 14:37 Blood Pressure 143/66 06/08/16 14:37 O2 Sat by Pulse Oximetry (%) 100 06/07/16 11:00 Constitutional: Yes: No Distress, Calm, Anxious Eyes: Yes: Conjunctiva Clear, EOM Intact HENT: Yes: Atraumatic, Normocephalic Neck: Yes: Supple, Trachea Midline Cardiovascular: Yes: Regular Rate and Rhythm, S1, S2 Respiratory: Yes: Regular, CTA Bilaterally Gastrointestinal: Yes: Normal Bowel Sounds, Soft, Abdomen, Obese. No: Hepatomegaly, Splenomegaly Breast(s): Yes: WNL Musculoskeletal: Yes: WNL Extremities: Yes: WNL. No: Calf Tenderness Edema: No Neurological: Yes: Alert, Oriented Psychiatric: Yes: Alert, Oriented Labs: CBC, BMP 06/08/16 06:30 06/08/16 06:30 Problem List - Problems (1) Acute diverticulitis Assessment/Plan: with multiple allergies to various antibiotics continue Invanz, since the patient is tolerating it monitor patient tylenol for pain full liquid diet d/c Iv fluids Code(s): K57.92 - DVTRCLI OF INTEST, PART UNSP, W/O PERF OR ABSCESS W/O BLEED (2) History of seizure Assessment/Plan: the patient is not taking any medications , due to her allergies to the drugs recommended until now the patient had an absence seizures today increases Klonopin to 0.125 mg po bid Code(s): Z87.898 - PERSONAL HISTORY OF OTHER SPECIFIED CONDITIONS (3) HTN (hypertension) Assessment/Plan: continue Atenolol 25 mg po daily Code(s): I10 - ESSENTIAL (PRIMARY) HYPERTENSION
--- NOTE | 2016-06-08 15:56 | PN ---
Progress Note, Physician History of Present Illness: No c/o abdominal pain Tolerating diet + small BMs No c/o fever/ chills Afebrile WBC WNL Tolerating ertapenem - Current Medication List Current Medications: Active Medications Acetaminophen (Tylenol -) 325 mg PO Q4H PRN PRN Reason: FEVER OR PAIN Last Admin: 06/07/16 09:50 Dose: 325 mg Atenolol (Tenormin -) 25 mg PO HS OLEKSANDR Last Admin: 06/07/16 21:23 Dose: 25 mg Clonazepam (Klonopin -) 0.125 mg PO BID OLEKSANDR Last Admin: 06/08/16 09:21 Dose: 0.125 mg Diphenhydramine HCl (Benadryl -) 25 mg PO Q6H PRN PRN Reason: FOR ITCHING Last Admin: 06/08/16 09:22 Dose: 25 mg IV Flush (Picc Line Flush) 8 ml IVPUSH PRN PRN PRN Reason: Protocol Ertapenem 1 gm/ Sodium (Chloride) 50 mls @ 100 mls/hr IVPB DAILY OLEKSANDR PRN Reason: Protocol Last Admin: 06/08/16 10:19 Dose: 100 mls/hr Potassium Chloride (K-Dur -) 10 meq PO DAILY OLEKSANDR Last Admin: 06/08/16 09:21 Dose: 10 meq - Objective Vital Signs: Vital Signs Temperature 99.1 F 06/08/16 14:37 Pulse Rate 59 L 06/08/16 14:37 Respiratory Rate 18 06/08/16 14:37 Blood Pressure 143/66 06/08/16 14:37 O2 Sat by Pulse Oximetry (%) 100 06/07/16 11:00 Constitutional: Yes: No Distress Eyes: Yes: Conjunctiva Clear Neck: Yes: Trachea Midline Cardiovascular: Yes: Regular Rate and Rhythm, S1, S2 Respiratory: Yes: CTA Bilaterally Gastrointestinal: Yes: Normal Bowel Sounds, Soft. No: Tenderness Edema: No Labs: CBC, BMP 06/08/16 06:30 06/08/16 06:30 Assessment/Plan Acute recurrent sigmoid diverticulitis Multiple antibiotic allergies Continue ertapenem
[2016-06-08] MEDS: ACETAMINOPHEN 325 MG TABLET (FP) PO PRN (16:30)
--- NOTE | 2016-06-08 17:18 | PN ---
GI Progress Note Subjective: No acute events Abdominal pain improved and had a bowel movement last night - Objective Vital Signs: Vital Signs Temperature 99.1 F 06/08/16 14:37 Pulse Rate 59 L 06/08/16 14:37 Respiratory Rate 18 06/08/16 14:37 Blood Pressure 143/66 06/08/16 14:37 O2 Sat by Pulse Oximetry (%) 98 06/08/16 11:00 Constitutional: Calm Eyes: No: Sclera Icterus Cardiovascular: Yes: Regular Rate and Rhythm Respiratory: Yes: CTA Bilaterally Gastrointestinal Inspection: No: Distention ...Auscultate: Yes: Normoactive Bowel Sounds ...Palpate: Yes: Tenderness (improved TTP LLQ) ...Percussion: No: Tympanitic Edema: No Neurological: Yes: Alert, Oriented Labs: CBC, BMP 06/08/16 06:30 06/08/16 06:30 Laboratory Tests 06/07/16 06/08/16 06:15 06:30 C-Reactive Protein 4.6 H 1.3 H D Problem List - Problems (1) Acute diverticulitis Assessment/Plan: Clinically improved Advancing to full liquids. low fiber diet for lunch tomorrow if continued improvement Abx per ID. Will need 10 day course of treatment total AM labs Code(s): K57.92 - DVTRCLI OF INTEST, PART UNSP, W/O PERF OR ABSCESS W/O BLEED
--- NOTE | 2016-06-08 18:22 | CON.NEURO ---
Consult Consult Specialty:: neurology - History of Present Illness History of Present Illness: 80 yo female with PMH of Seizure Disorder HTN, and Diverticulitis, migraines developed for approximately 2 weeks nonspecific abdominal pain, dx with divirticulitis. called for rajeev HX. has been seen/[facility] by neurology for this in past, episodes of chills/shivers and de ja vu events , seems to be sporadic / episodic, last flurry was 2-3 months ago, feels that they occur every few months , but may happen daily during those times, (5-10X /day sometimes); since her adnission she had 2 -3 evenst in the last 2 days. has tried lamictal and trileptal in past--and Dc bc of RXN. not on any RX for this. EEG in past. otherwise at baseline and nonfocal neuro c/o. on ABX for divirticulitis. 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 - Past Surgical History Past Surgical History: Yes: Cholecystectomy (laparoscopic) Additional Surgical History: vaginal gland removal - Alcohol/Substance Use Hx Alcohol Use: Yes (daily obinna, wine) Number of Drinks Daily: 4 (nightly martini, wine with every meal) - Smoking History Smoking history: Never smoked Have you smoked in the past 12 months: No Aproximately how many cigarettes per day: 0 - Social History Usual Living Arrangement: Alone ADL: Independent 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 History of Recent Travel: No Home Medications - Allergies Allergies/Adverse Reactions: Allergies Allergy/AdvReac Type Severity Reaction Status Date / Time lamotrigine [From Lamictal] Allergy Intermediate HIVES,ITCHI Verified 05/18/14 15:19 NG amoxicillin Allergy Verified 06/05/16 11:38 Bifidobacterium bifidum Allergy Verified 06/05/16 11:38 [From Bacid] ciprofloxacin [From Cipro] Allergy Verified 06/05/16 11:40 ciprofloxacin HCl Allergy Verified 06/05/16 11:40 [From Cipro] iodine Allergy anaphylaxis Verified 05/18/14 15:19 Lactobacillus acidophilus Allergy Verified 06/05/16 11:38 [From Bacid] Lactobacillus bulgaricus Allergy Verified 06/05/16 11:38 [From Bacid] metronidazole [From Flagyl] Allergy Verified 06/05/16 11:39 oxcarbazepine Allergy Verified 06/05/16 11:40 Streptococcus thermophilus Allergy Verified 06/05/16 11:38 [From Bacid] Sulfa (Sulfonamide Allergy Verified 06/05/16 11:40 Antibiotics) contrast Allergy anaphylaxis Uncoded 12/17/13 09:21 - Home Medications Home Medications: Ambulatory Orders Aspirin [ASA -] 81 mg PO DAILY 05/18/14 Atenolol [Tenormin -] 25 mg PO DAILY 06/05/16 Family Disease History - Family Disease History Family Disease History: Other: Father ( 56 bladder ca), Mother ( 76 ALS) , Brother (1 brother: does not speak to him much), Daughter (1 daughter: healthy ) Other Family History: No family history of colorectal cancer or other GI malignancy Physical Exam-Neuro Vital Signs: Vital Signs Temperature 99.1 F 06/08/16 14:37 Pulse Rate 59 L 06/08/16 14:37 Respiratory Rate 18 06/08/16 14:37 Blood Pressure 143/66 06/08/16 14:37 O2 Sat by Pulse Oximetry (%) 98 06/08/16 11:00 Constitutional: Yes: Well Nourished, No Distress Labs: CBC, BMP 06/08/16 06:30 06/08/16 06:30 - Neuro Exam Level Of Consciousness: Yes: Alert, Oriented to Person (follows 3 steps, EOMI, VFF, no facial, motor 5/5, no drift, sensory intact, plantars down ) NIH Stroke Scale - Total Score NIH Stroke Scale Score: 0 Problem List - Problems (1) Acute diverticulitis Code(s): K57.92 - DVTRCLI OF INTEST, PART UNSP, W/O PERF OR ABSCESS W/O BLEED (2) History of seizure Code(s): Z87.898 - PERSONAL HISTORY OF OTHER SPECIFIED CONDITIONS (3) Allergic reaction caused by a drug Code(s): T78.40XA - ALLERGY, UNSPECIFIED, INITIAL ENCOUNTER (4) Seizures Code(s): R56.9 - UNSPECIFIED CONVULSIONS Assessment/Plan 80 yo female with PMH of Seizure Disorder HTN, and Diverticulitis, migraines developed for approximately 2 weeks nonspecific abdominal pain, dx with divirticulitis. called for seizure HX. has been seen/[facility] by neurology for this in past, episodes of chills/shivers and de ja vu events , seems to be sporadic / episodic, last flurry was 2-3 months ago, feels that they occur every few months , but may happen daily during those times, (5-10X /day sometimes); since her admission she had 2 -3 events in the last 2 days. has tried lamictal and trileptal in past--and Dc bc of RXN. not on any RX for this. EEG in past. otherwise at baseline and nonfocal neuro c/o. on ABX for divirticulitis 1) possible breakthrough seziure events though if these are seizures they seem to be psychic partial complex events -ideally need VEEG monitoring which can be pursued as an outpt. She defers started on new anti-epileptic at this juncture. fortunately does not appears to have generalized events, so in theory can follow these events over time, (no hx of status epilepticus etc) . please note ertopenam can be associated with seizures, unclear if this is the related to her recents events, so may consider changing if requires ferry terminal agent trtment if possible. Will FU as outpt-she is in agreement. thank you Dr Sandy [phone]
[2016-06-08] MEDS: ATENOLOL 25 MG TABLET (FP) PO SCH (22:06)
[2016-06-09 00:07] LABS: CLONAZEPAM (CLONOPIN) None Detected ng/mL (20-70)
[2016-06-09 08:07] LABS: INR 1.09 (0.82-1.09)
--- NOTE | 2016-06-09 08:13 | PN ---
Progress Note (short form) - Note Progress Note: HPI 06/08/16 : 80 yo female with PMH of Seizure Disorder HTN, and Diverticulitis , migraines developed for approximately 2 weeks nonspecific abdominal pain, dx with divirticulitis. called for rajeev HAWTHORNE. has been seen/[facility] by neurology for this in past, episodes of chills/shivers and de ja vu events , seems to be sporadic /episodic, last flurry was 2-3 months ago, feels that they occur every few months, but may happen daily during those times, (5-10X /day sometimes); since her adnission she had 2 -3 evenst in the last 2 days. has tried lamictal and trileptal in past--and Dc bc of RXN. not on any RX for this. EEG in past. otherwise at baseline and nonfocal neuro c/o. on ABX for divirticulitis. 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: Seizure Cardio/Vascular: Yes: HTN Gastrointestinal: Yes: Diverticulitis, Diverticulosis, Other (colon polyps) ...: No Additional Medical History: Reflex sympathetic dystrophy of the left arm Home Medications - Allergies Allergies/Adverse Reactions: Allergies Allergy/AdvReac Type Severity Reaction Status Date / Time lamotrigine [From Lamictal] Allergy Intermediate HIVES,ITCHI Verified 05/18/14 15:19 NG amoxicillin Allergy Verified 06/05/16 11:38 Bifidobacterium bifidum Allergy Verified 06/05/16 11:38 [From Bacid] ciprofloxacin [From Cipro] Allergy Verified 06/05/16 11:40 ciprofloxacin HCl Allergy Verified 06/05/16 11:40 [From Cipro] iodine Allergy anaphylaxis Verified 05/18/14 15:19 Lactobacillus acidophilus Allergy Verified 06/05/16 11:38 [From Bacid] Lactobacillus bulgaricus Allergy Verified 06/05/16 11:38 [From Bacid] metronidazole [From Flagyl] Allergy Verified 06/05/16 11:39 oxcarbazepine Allergy Verified 06/05/16 11:40 Streptococcus thermophilus Allergy Verified 06/05/16 11:38 [From Bacid] Sulfa (Sulfonamide Allergy Verified 06/05/16 11:40 Antibiotics) contrast Allergy anaphylaxis Uncoded 12/17/13 09:21 - Home Medications Home Medications: Ambulatory Orders Aspirin [ASA -] 81 mg PO DAILY 05/18/14 Atenolol [Tenormin -] 25 mg PO DAILY 06/05/16 Family Disease History - Family Disease History Family Disease History: Other: Father ( 56 bladder ca), Mother ( 76 ALS) , Brother (1 brother: does not speak to him much), Daughter (1 daughter: healthy ) Other Family History: No family history of colorectal cancer or other GI malignancy Physical Exam-Neuro Vital Signs: Vital Signs Period Temp Pulse Resp BP Sys/Gardiner Pulse Ox Last 24 Hr 97.8 F-99.1 F 59-71 18-20 141-164/66-96 98-98 Vital Signs Constitutional: Yes: Well Nourished, No Distress Labs: CBC, BMP 06/08/16 06:30 06/08/16 06:30 - Neuro Exam Level Of Consciousness: Yes: Alert, Oriented to Person (follows 3 steps, EOMI, VFF, no facial, motor 5/5, no drift, sensory intact, plantars down ) NIH Stroke Scale - Total Score NIH Stroke Scale Score: 0 Problem List - Problems (1) Acute diverticulitis Code(s): K57.92 - DVTRCLI OF INTEST, PART UNSP, W/O PERF OR ABSCESS W/O BLEED (2) History of seizure Code(s): Z87.898 - PERSONAL HISTORY OF OTHER SPECIFIED CONDITIONS (3) Allergic reaction caused by a drug Code(s): T78.40XA - ALLERGY, UNSPECIFIED, INITIAL ENCOUNTER (4) Seizures Code(s): R56.9 - UNSPECIFIED CONVULSIONS Assessment/Plan 80 yo female with PMH of Seizure Disorder HTN, and Diverticulitis, migraines developed for approximately 2 weeks nonspecific abdominal pain, dx with divirticulitis. called for seizure HX. has been seen/[facility] by neurology for this in past, episodes of chills/shivers and de ja vu events , seems to be sporadic / episodic, last flurry was 2-3 months ago, feels that they occur every few months , but may happen daily during those times, (5-10X /day sometimes); since her admission she had 2 -3 events in the last 2 days. has tried lamictal and trileptal in past--and Dc bc of RXN. not on any RX for this. EEG in past. otherwise at baseline and nonfocal neuro c/o. 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 She defers started on new anti-epileptic at this juncture. fortunately does not appears to have generalized events, so in theory can follow these events over time, (no hx of status epilepticus etc) . please note ertopenam can be associated with seizures, unclear if this is the related to her recents events--appaers to be Ok on ABX , may maintain if needed, stable form neuro stand point. thank you Dr Sandy [phone] Problem List - Problems (1) Acute diverticulitis Code(s): K57.92 - DVTRCLI OF INTEST, PART UNSP, W/O PERF OR ABSCESS W/O BLEED (2) History of seizure Code(s): Z87.898 - PERSONAL HISTORY OF OTHER SPECIFIED CONDITIONS (3) Allergic reaction caused by a drug Code(s): T78.40XA - ALLERGY, UNSPECIFIED, INITIAL ENCOUNTER (4) Seizures Code(s): R56.9 - UNSPECIFIED CONVULSIONS
[2016-06-09 08:52] VITALS: PULSE 57
[2016-06-09] MEDS: clonazePAM 0.5 MG TABLET PO SCH (09:27)
[2016-06-09] MEDS: POTASSIUM CHLORIDE TABS 10 MEQ TABLET.ER (FP) PO SCH (09:27)
[2016-06-09] MEDS: diphenhydrAMINE HCL 25 MG CAPSULE (FP) PO PRN (09:27)
[2016-06-09] MEDS ORDERED: PT OWN MED DRAWER 7, Y5N ONE (10:31)
[2016-06-09] MEDS: ERTAPENEM SODIUM 1 GM in SODIUM CHLORIDE 50 ML IVPB SCH (10:42)
--- NOTE | 2016-06-09 13:45 | PN ---
Progress Note, Physician History of Present Illness: Awake, alert No c/o abdominal pain + BM Tolerating diet and antibiotics - Current Medication List Current Medications: Active Medications Acetaminophen (Tylenol -) 325 mg PO Q4H PRN PRN Reason: FEVER OR PAIN Last Admin: 06/08/16 16:30 Dose: 325 mg Atenolol (Tenormin -) 25 mg PO HS OLEKSANDR Last Admin: 06/08/16 22:06 Dose: 25 mg Clonazepam (Klonopin -) 0.125 mg PO BID OLEKSANDR Last Admin: 06/09/16 09:27 Dose: 0.125 mg Diphenhydramine HCl (Benadryl -) 25 mg PO Q6H PRN PRN Reason: FOR ITCHING Last Admin: 06/09/16 09:27 Dose: 25 mg IV Flush (Picc Line Flush) 8 ml IVPUSH PRN PRN PRN Reason: Protocol Ertapenem 1 gm/ Sodium (Chloride) 50 mls @ 100 mls/hr IVPB DAILY OLEKSANDR PRN Reason: Protocol Last Admin: 06/09/16 10:42 Dose: 100 mls/hr Potassium Chloride (K-Dur -) 10 meq PO DAILY OLEKSANDR Last Admin: 06/09/16 09:27 Dose: 10 meq - Objective Vital Signs: Vital Signs Temperature 98.1 F 06/09/16 08:51 Pulse Rate 57 L 06/09/16 08:51 Respiratory Rate 16 06/09/16 08:51 Blood Pressure 143/77 06/09/16 08:51 O2 Sat by Pulse Oximetry (%) 98 06/09/16 11:00 Constitutional: Yes: No Distress Eyes: Yes: Conjunctiva Clear Cardiovascular: Yes: Regular Rate and Rhythm, S1, S2 Respiratory: Yes: CTA Bilaterally Gastrointestinal: Yes: Normal Bowel Sounds, Soft. No: Tenderness Edema: No Labs: CBC, BMP 06/09/16 06:15 06/09/16 06:15 INR, PTT INR 1.09 (0.82-1.09) 06/09/16 06:15 Assessment/Plan Acute recurrent sigmoid diverticulitis Multiple antibiotic allergies Continue ertapenem For PICC, outpatient antibiotic therapy ertapenem 1gm IVPB q24h x 7d
--- NOTE | 2016-06-09 14:40 | DS ---
Physical Examination Vital Signs: Vital Signs Temperature 98.1 F 06/09/16 08:51 Pulse Rate 57 L 06/09/16 08:51 Respiratory Rate 16 06/09/16 08:51 Blood Pressure 143/77 06/09/16 08:51 O2 Sat by Pulse Oximetry (%) 98 06/09/16 11:00 Constitutional: Yes: No Distress, Calm Eyes: Yes: Conjunctiva Clear, EOM Intact HENT: Yes: Atraumatic, Normocephalic Neck: Yes: Supple, Trachea Midline Cardiovascular: Yes: Regular Rate and Rhythm, S1, S2 Respiratory: Yes: Regular, CTA Bilaterally Gastrointestinal: Yes: Normal Bowel Sounds, Soft, Abdomen, Obese. No: Splenomegaly, Tenderness, Tenderness, Epigastrium, Tenderness, Rebound, Vomiting ...Rectal Exam: Yes: Deferred Breast(s): Yes: WNL Musculoskeletal: Yes: Other Extremities: No: Calf Tenderness Edema: No Peripheral Pulses WNL: Yes Integumentary: Yes: WNL Neurological: Yes: Alert, Oriented ...Motor Strength: WNL Psychiatric: Yes: Alert, Oriented Labs: CBC, BMP 06/09/16 06:15 06/09/16 06:15 Discharge Summary Reason For Visit: ACUTE DIVERTICULITIS OF INTESTINE Current Active Problems Acute diverticulitis (Acute) HTN (hypertension) (Acute) History of seizure (Acute) Hospital Course: 80 yo female admitted for lower abdominal pain diagnosed with mild diverticulitis, since she has extensive allergies to medication she was started on iV INVANZ WHICH SHE TOLERATED WELL. sHE WILL BE DISCHARGED ON iv iNVANz ADMINISTRATION DAILY FOR 7 MORE DAYS. removal of the PICC line in the radiology department follow up with [facility] in 7 days Condition: Stable - Instructions Referrals: Flakito Mazariegos DO [Staff Physician] - Deon Wells MD [Staff Physician] - Sophia Rodarte MD [Primary Care Provider] - - Home Medications Comprehensive Discharge Medication List: Ambulatory Orders Aspirin [ASA -] 81 mg PO DAILY 05/18/14 Atenolol [Tenormin -] 25 mg PO DAILY 06/05/16 Acetaminophen [Tylenol .Regular Strength -] 325 mg PO Q4H PRN #0 tablet Atenolol [Tenormin -] 25 mg PO HS tablet 06/09/16 Clonazepam [Klonopin -] 0.125 mg PO BID #30 tablet MDD 10 06/09/16 Ertapenem Sodium [Invanz -] 1 gm IVPB DAILY #7 vial 06/09/16 Picc Line Flush [Picc Line Flush -] 8 ml IVPUSH PRN PRN #0 ml 06/09/16
[2016-06-09] MEDS ORDERED: ATENOLOL 25 MG TABLET (FP) PO STA (15:01)
[2016-06-09 16:31] VITALS: BP 161/79; TEMP 98
== END 2016-06-09 18:10 | disposition home or self-care (01) | DRG 392 ==
LOC: JER 11:24 → JERBED 15:36 → J8W 17:55 → OBSVTOIN 06-07 12:54 → J8W 06-09 01:14
PROVIDERS: ADMIT Internal Medicine; ATTEND Internal Medicine
PROC: 02HV33Z Insertion of Infusion Device into Superior Vena Cava, Percutaneous Approach (ICD-10-PCS; principal; 2016-06-09)
DX: K57.32 Diverticulitis of large intestine without perforation or abscess without bleeding (principal); G90.512 Complex regional pain syndrome I of left upper limb; G40.89 Other seizures; I10 Essential (primary) hypertension; E53.8 Deficiency of other specified B group vitamins; Z88.1 Allergy status to other antibiotic agents
CPT/HCPCS: 36415; 36569; 74176-TC; 77001-TC; 80048; 80053; 81003; 81015; 83690; 85025; 85610; 86140; 87040; 87086; 93005; 93010; 99284-25; C1751; G0378; G0480

== ENCOUNTER 2020-09-06 11:08 | Emergency (ER) | payer OTHER, MEDICARE ==
[2020-09-06 11:34] VITALS: BP 179/84; PULSE 66; TEMP 99.8; BMI 27.4
== END 2020-09-06 12:22 | disposition home or self-care (01) ==
LOC: FER 11:08
DX: S62.102A Fracture of unspecified carpal bone, left wrist, initial encounter for closed fracture (principal)
CPT/HCPCS: 73110-TC-LT-FY; 99284-25